=== PATIENT | male | born 1990 | race Caucasian/White ===

== ENCOUNTER 2018-12-19 11:09 | Emergency (ER) | payer BC ==
--- NOTE | 2018-12-19 11:34 | Emergency Department Record ---
History of Present Illness - General Chief complaint: Pain Stated complaint: R SIDE PAIN Time Seen by Provider: 12/19/18 11:21 Source: Patient Mode of Arrival: Ambulatory Limitations: No limitations - History of Present Illness Initial comments: The patient is here due to a 7 day hx of a penile rash and pain in the R groin. He denies any dysuria, urethral discharge, AP, vomiting, fever, or swelling to the groin. The patient was seen at an 4 days ago and tested neg for STD's. He also had a full workup for STD's and HIV 4 months ago that was neg. MD Complaint: Other Onset/Timin -: Days(s) Location: Right History of Same: No Radiation: None - Related Data Previous Rx's Medication Instructions Recorded Acyclovir 400 mg PO TID #21 tablet 12/19/18 Allergies Allergy/AdvReac Type Severity Reaction Status Date / Time No Known Drug Allergies Allergy Verified 12/19/18 11:23 Travel Screening - Travel/Exposure Within Last 30 Days Have you traveled within the last 30 days?: No Review of Systems Constitutional: Denies: Chills, Fever Eyes: Denies: Eye discharge ENT: Denies: Congestion Respiratory: Denies: Cough, Dyspnea Past Medical History - SOCIAL HISTORY Smoking Status: Current some day smoker Alcohol Use Comment: drinks alcohol everyday Drug Use: None - RESPIRATORY Hx Respiratory Disorders: No - CARDIOVASCULAR Hx Cardio Disorders: No - NEURO Hx Neuro Disorders: No - GI Hx GI Disorders: No - Hx Genitourinary Disorders: No - ENDOCRINE Hx Endocrine Disorders: No - MUSCULOSKELETAL Hx Musculoskeletal Disorders: No - PSYCH Hx Psych Problems: No - HEMATOLOGY/ONCOLOGY Hx Hematology/Oncology Disorders: No Family Medical History Any Significant Family History?: Yes Hx Diabetes: Mother Physical Exam - General General Appearance: Alert, Oriented x3, Cooperative, No acute distress - Head Head exam: Atraumatic, Normocephalic, Normal inspection - Eye Eye exam: Normal appearance, PERRL, EOMI - Neck Neck exam: Normal inspection, Full ROM. negative: Tenderness - Respiratory Respiratory exam: Normal lung sounds bilaterally. negative: Respiratory distress - Cardiovascular Cardiovascular Exam: Regular rate, Normal rhythm, Normal heart sounds - GI/Abdominal GI/Abdominal exam: Soft, Normal bowel sounds. negative: Distended, Guarding, Hernia (The patient does have mildly tender R inguinal lymph nodes but no hernia.), Rebound, Rigid, Tenderness - exam: Circumcision. negative: Normal inspection (There are healed vesicles on an erythematous base over the R base and shaft of the penis ventrally mainly. They appear to be healed herpes virus lesions. ), Scrotal swelling, Testicular tenderness - Extremities Extremities exam: Normal inspection, Full ROM, Normal capillary refill. negative: Tenderness Course Vital Signs 12/19/18 11:17 Temperature 97.8 F Pulse Rate 73 Respiratory 16 Rate Blood Pressure 130/92 Pulse Ox 100 - Reevaluation(s) Reevaluation #1: I did explain to the patient that it appears his issues are due to a Herpes virus infection. Due to the lesions basically being healed and scabbed at this time I doubt any chance of detecting any virus. The patient is to practice safe sex and see his PCP for further evaluation. The patient is declining STD testing due to having it done 4 days ago and was neg. 12/19/18 11:38 Disposition Disposition: Discharge Clinical Impression: Rash of genitalia Disposition: Home, Self-Care Condition: (2) Stable Instructions: Genital Herpes Simplex (ED) Additional Instructions: Please practice safe sex and please see your family doctor for further evaluation. Please take the Acyclovir as directed and also follow up at the health de[facility] for HIV testing. Prescriptions: Acyclovir 400 mg PO TID #21 tablet Forms: Patient Portal Access Time of Disposition: 11:41 Quality - Quality Measures Quality Measures: N/A - Blood Pressure Screening View Details: Yes Does Patient Have Any of the Following: No Blood Pressure Classification: Hypertensive Reading Systolic Measurement: 130 Diastolic Measurement: 92 Screening for High Blood Pressure: < First Hypertensive BP, F/U Documented > [[id number]] First Hypertensive Follow-up Interventions: Referral to alternative/primary care provider.
== END 2018-12-19 11:48 | disposition home or self-care (01) ==
LOC: ER 11:09
DX: A60.01 Herpesviral infection of penis (principal); F17.210 Nicotine dependence, cigarettes, uncomplicated
CPT/HCPCS: 99282